=== PATIENT | female | born 1990 | race Two or more races ===

== ENCOUNTER → 2024-05-16 | Outpatient (CLI) | payer BC ==
[2024-05-16 08:25] LABS: Basophils # (auto) 0.1 10 ^3/uL (0-0.2); Basophils % (auto) 1.2 % (0.0-2.0); Eosinophils # (auto) 0.7 10 ^3/uL (0-0.8); Eosinophils % (auto) 8.7 % (0.0-7.0); Hematocrit 43.5 % (36.0-46.0); Hemoglobin 14.9 g/dL (12.2-16.2); Lymphocytes # (auto) 1.9 10 ^3/uL (0.4-5.4); Lymphocytes % (auto) 24.4 % (10.0-50.0); Mean Corpuscular Hemoglobin 32.3 pg (28.0-32.0); Mean Corpuscular Hgb Conc. 34.4 g/dL (32.0-36.0); Monocytes # (auto) 0.5 10 ^3/uL (0-1.3); Monocytes % (auto) 6.4 % (0.0-12.0); Neutrophils # (auto) 4.5 10 ^3/uL (1.6-8.6); Neutrophils % (auto) 59.3 % (37.0-80.0); Platelet Count (auto) 250 10^3/uL (140-450); Red Blood Cells 4.62 10^6/uL (4.0-5.20); Red Cell Distribution Width 12.7 % (11.8-14.3); White Blood Cell 7.6 10^3/uL (4.4-10.8)
[2024-05-16 08:26] LABS: Urine Bacteria FEW /hpf (None Seen); Urine Blood Negative /uL (Negative); Urine Clarity Clear (Clear); Urine Color Colorless (Yellow); Urine Protein, UAD Negative (Negative); Urine Specific Gravity 1.006 (1.001-1.035); Urine Urobilinogen Normal (Negative); Urine WBC <1 /hpf (0 - 5); Urine pH 5.5 (5.0-9.0)
[2024-05-16 09:25] LABS: Protein, Urine 6.4 mg/dL (1-14)
[2024-05-16 09:26] LABS: Creatinine, Urine 27.31 mg/dL (30.0-125.0); Urine Protein/Creatinine Ratio 0.23
[2024-05-16 09:28] LABS: Alkaline Phosphatase 62 U/L (46-116); Anion Gap 8 (5-15); BUN/Creatinine Ratio 17.1 (10.0-20.0); Blood Urea Nitrogen 14 mg/dL (9-23); Calcium 9.7 mg/dL (8.7-10.4); Carbon Dioxide 26 mmol/L (20-31); Chloride 102 mmol/L (98-107); Potassium 3.8 mmol/L (3.5-5.1); Sodium 136 mmol/L (136-145)
[2024-05-16 09:29] LABS: Albumin 4.7 g/dL (3.2-4.8); Aspartate Aminotransferase 29 U/L (13-40); Bilirubin, Total 0.5 mg/dL (0.2-1.0); HDL Cholesterol 51 mg/dL (40-59); Total Protein 7.9 g/dL (5.7-8.2)
[2024-05-16 09:38] LABS: Micro Albumin < 3.0 mg/L (<30.0)
[2024-05-16 09:39] LABS: Alanine Aminotransferase 47 U/L (7-40); Cholesterol 212 mg/dL (< 200); Glucose 174 mg/dL (74-106); LDL Cholesterol 142 mg/dL (< 100); Triglycerides 187 mg/dL (< 150)
== END | disposition home or self-care (01) ==
LOC: LAB 08:06
DX: E11.9 Type 2 diabetes mellitus without complications (principal); E78.5 Hyperlipidemia, unspecified; E55.9 Vitamin D deficiency, unspecified
CPT/HCPCS: 36415; 80053; 80061; 81001; 82043; 82306; 82570; 82607; 83036; 84156; 85025